=== PATIENT | female | born 1985 | race Hispanic/Latino ===

== ENCOUNTER 2018-03-04 02:14 | Emergency (ER) | payer SELFPAY ==
[2018-03-04 02:40] VITALS: RESP 20; O2SAT 98
--- NOTE | 2018-03-04 03:05 | C.PDOC ---
History Of Present Illness 33 year old female presents to the ED c/o abdominal pain for the past 5 weeks. Patient reports she has a UTI and developed fever tonight. Patient states she had MRI and CT scan done at another facility that were normal. Patient denies nausea, vomit, diarrhea, hematuria, weakness, numbness. Chief Complaint (Nursing): Abdominal Pain History Per: Patient History/Exam Limitations: no limitations Onset/Duration Of Symptoms: Days, Persistent Current Symptoms Are (Timing): Still Present Location Of Pain/Discomfort: Diffuse Radiation Of Pain To:: None Quality Of Discomfort: "Pain" Associated Symptoms: Fever, Urinary Symptoms. denies: Nausea, Vomiting, Diarrhea Exacerbating Factors: None Alleviating Factors: None Recent travel outside of the [place]: No Additional History Per: Patient Abnormal Vaginal Bleeding: No Past Medical History Reviewed: Historical Data, Nursing Documentation, Vital Signs Vital Signs: Last Vital Signs Temp 101 F H 03/04/18 02:37 Pulse 103 H 03/04/18 02:37 Resp 20 03/04/18 02:37 BP 123/84 03/04/18 02:37 Pulse Ox 98 03/04/18 02:37 - Medical History PMH: No Chronic Diseases Surgical History: No Surg Hx Family History: States: Unknown Family Hx - Social History Hx Alcohol Use: No Hx Substance Use: No - Immunization History Hx Tetanus Toxoid Vaccination: No Hx Influenza Vaccination: No Hx Pneumococcal Vaccination: No Review Of Systems Constitutional: Positive for: Fever. Negative for: Chills Cardiovascular: Negative for: Chest Pain Respiratory: Negative for: Shortness of Breath Gastrointestinal: Positive for: Abdominal Pain. Negative for: Nausea, Vomiting Genitourinary: Positive for: Dysuria. Negative for: Hematuria Skin: Negative for: Rash Neurological: Negative for: Weakness, Numbness Physical Exam - Physical Exam Appears: Non-toxic, In Acute Distress (due to pain) Skin: Normal Color, Warm, Dry Head: Atraumatic, Normacephalic Eye(s): bilateral: Normal Inspection Neck: Normal ROM, Supple Chest: Symmetrical Cardiovascular: Rhythm Regular Respiratory: Normal Breath Sounds, No Rales, No Rhonchi, No Wheezing Gastrointestinal/Abdominal: Soft, Tenderness (diffuse, moslty lower quadrants), No Guarding Extremity: Normal ROM, No Tenderness, No Swelling Neurological/Psych: Oriented x3, Normal Speech, Normal Cognition Gait: Steady ED Course And Treatment - Laboratory Results Result Diagrams: 03/04/18 03:25 03/04/18 03:25 O2 Sat by Pulse Oximetry: 98 (ON RA) Pulse Ox Interpretation: Normal - CT Scan/US CT abd/pelvis Other Rad Studies (CT/US): Read By Radiologist, Radiology Report Reviewed CT/US Interpretation: CT SCAN OF THE ABDOMEN AND PELVIS WITH CONTRAST. CLINICAL HISTORY: Abdominal pain. TECHNIQUE: Multiple axial and coronal CT images were obtained through the abdomen and pelvis after administration of intravenous contrast material. COMMENTS: The liver is of uniform attenuation without mass or defect. There is no intra or extrahepatic biliary ductal dilatation. The spleen is normal. The gallbladder is within normal limits. The pancreas is of normal contour and attenuation characteristics. There is no evidence of adrenal mass. Both kidneys demonstrate prompt and equal nephrograms. The kidneys are normal in size, shape and configuration. There is no evidence of renal or ureteral mass. No renal or ureteral calculi are identified. There is no hydroureter or hydronephrosis. No evidence for appendicitis. There is no bowel wall thickening. No evidence for small or large bowel obstruction. There is no evidence of abdominal ascites or lymphadenopathy. There is no evidence of intrinsic or extrinsic bladder mass. There is small amount of free pelvic fluid. 3.5 cm right ovarian cyst. Intrauterine device is noted. Images of the lung bases show no evidence of pleural or parenchymal mass. There are no pleural effusions. The bony structures are free of lytic or blastic lesions. IMPRESSION: Right ovarian cyst. Small amount of free pelvic fluid. Thank you for your kind referral of this patient. . Electronically signed on Mar 04, 2018 5:30:05 AM EDT by: Chapis Del Toro M.D., Certified by ABR, MSK, Ne uroradiology Medical Decision Making Medical Decision Making: Plan: * CT abd/pelvis * Labs * Blood culture * Urine culture * UA Disposition Counseled Patient/Family Regarding: Diagnosis - Disposition Referrals: [facility] [Outside] Disposition: HOME/ ROUTINE Disposition Time: 05:34 Condition: STABLE Prescriptions: Ibuprofen [Motrin] 1 tab PO TID PRN #30 tab PRN Reason: Pain Instructions: Ovarian Cysts, Acute Pelvic Pain (DC), Acute Abdomen (Belly Pain) Forms: [employer] ([place]atem[place]) - POA Present On Arrival: None - Clinical Impression Clinical Impression: Abdominal pain, Ovarian cyst - Scribe Statement The provider has reviewed the documentation as recorded by the Scribe Tony Vaughn All medical record entries made by the Scribe were at my direction and personally dictated by me. I have reviewed the chart and agree that the record accurately reflects my personal performance of the history, physical exam, medical decision making, and the department course for this patient. I have also personally directed, reviewed, and agree with the discharge instructions and disposition.
[2018-03-04] MEDS ORDERED: Iohexol 240 (50 ml) ONE ×2 (03:10→03:19)
[2018-03-04] MEDS ORDERED: Iohexol 240 (50 ml) PO ONE (03:11)
[2018-03-04 03:30] LABS: BASO % 0.2 % (0.0-2.0); EOS # 0.1 K/uL (0.0-0.7); HEMOGLOBIN 12.8 g/dL (11.0-16.0); LYMPH # 0.6 K/uL (1.0-4.3); LYMPH % 9.4 % (20.0-40.0); MEAN CELL VOLUME 88.2 fL (81.0-99.0); MEAN CORPUSCULAR HEMOGLOBIN 30.3 pg (27.0-31.0); MEAN CORPUSCULAR HGB CONC 34.4 g/dL (33.0-37.0); MEAN PLATELET VOLUME 8.4 fL (7.2-11.7); MONO # 0.4 K/uL (0.0-0.8); NEUT # 5.4 K/uL (1.8-7.0); NEUT % 82.4 % (50.0-75.0); NRBC % 0.1 % (0.0-2.0); PLATELET COUNT 183 K/uL (130-400); RBC 4.21 Mil/uL (3.80-5.20); RED CELL DISTRIBUTION WIDTH 12.6 % (11.5-14.5); WHITE BLOOD COUNT 6.6 K/uL (4.8-10.8)
[2018-03-04 03:32] LABS: SQUAMOUS EPITHIAL 1 /hpf (0-5); URINE BILIRUBIN NEGATIVE (NEGATIVE); URINE BLOOD NEGATIVE (NEGATIVE); URINE CLARITY Clear (Clear); URINE COLOR Yellow (YELLOW); URINE GLUCOSE (UA) NORMAL (Normal); URINE LEUKOCYTE ESTERASE NEG Leu/uL (Negative); URINE PROTEIN NEGATIVE (NEGATIVE); URINE UROBILINOGEN NORMAL mg/dL (0.2-1.0)
[2018-03-04 03:34] LABS: HCG,QUALITATIVE URINE NEGATIVE (NEGATIVE)
[2018-03-04] MEDS ORDERED: Sodium Chloride 0.9% 1,000 ML IV ONE ×2 (03:42)
[2018-03-04 03:43] LABS: ALB/GLOB RATIO 1.3 (1.0-2.1); ALT/SGPT 28 U/L (9-52); AST/SGOT 17 U/L (14-36); BLOOD UREA NITROGEN 7 mg/dL (7-17); GFR NON-AFRICAN AMERICAN > 60; LIPASE 73 U/L (23-300)
[2018-03-04] MEDS ORDERED: Sodium Chloride 0.9% 2,000 ML ONE (03:49)
[2018-03-04] MEDS ORDERED: Iodixanol 320 MG/ML 100 ML BOTTLE IV ONE (03:58)
[2018-03-04 04:02] LABS: EOSINOPHIL 2 % (0-4); LYMPHOCYTE 8 % (20-40); MONOCYTE 7 % (0-10); NEUTROPHIL 83 % (50-75); PLATELET ESTIMATE NORMAL (NORMAL); TOTAL CELLS COUNTED 100
[2018-03-04 06:07] VITALS: BP 95/58; PULSE 99; TEMP 98.6
--- NOTE | 2018-03-04 09:28 | CT ---
Date of service: 03/04/2018 PROCEDURE: CT abdomen and pelvis with intravenous contrast. HISTORY: Abdominal pain COMPARISON: None. TECHNIQUE: Multiple contiguous axial images were performed through the abdomen and pelvis with the use of intravenous contrast. Subsequently, sagittal and coronal reformatted images were obtained. Radiation dose: Total exam DLP = 551 mGy-cm. This CT exam was performed using one or more of the following dose reduction techniques: Automated exposure control, adjustment of the mA and/or kV according to patient size, and/or use of iterative reconstruction technique. FINDINGS: LOWER THORAX: Few small hypodensities in the right hepatic lobe for example on series 3, image 36 measuring 7 millimeters and on series 3, image 47 measuring 3 millimeters, too small to adequately characterize. LIVER: Unremarkable. No gross lesion or ductal dilatation. GALLBLADDER AND BILE DUCTS: Unremarkable. PANCREAS: Unremarkable. No gross lesion or ductal dilatation. SPLEEN: Unremarkable. ADRENALS: Unremarkable. No mass. KIDNEYS AND URETERS: Unremarkable. No hydronephrosis. No solid mass. VASCULATURE: Unremarkable. No aortic aneurysm. BOWEL: Unremarkable. No obstruction. No gross mural thickening. APPENDIX: Unremarkable. Normal appendix. PERITONEUM: Small amount of free fluid in the pelvis. LYMPH NODES: Unremarkable. No enlarged lymph nodes. BLADDER: Unremarkable. REPRODUCTIVE: 3.5 centimeter right ovarian cyst. Intrauterine device in place. BONES: No acute fracture. OTHER FINDINGS: None. IMPRESSION: 3.5 centimeter right ovarian cyst. Small amount of free fluid in the pelvic cul-de-sac. If symptoms persists, consider correlation with pelvic ultrasound. These findings were preliminarily reported at 5:30 a.m. on 03/04/[address] Chapis Del Toro from [facility].
== END 2018-03-04 06:08 | disposition home or self-care (01) ==
LOC: C.ER 02:14
DX: N83.209 Unspecified ovarian cyst, unspecified side (principal); R10.30 Lower abdominal pain, unspecified
CPT/HCPCS: 36415; 74177; 80053; 81001; 83690; 84703; 85025; 87040; 87086; 96361; 96374; 99285; J1885; J7030; Q9966; Q9967